=== PATIENT | male | born 1995 | race Caucasian/White ===

== ENCOUNTER 2019-01-25 16:53 | Outpatient (REF) | payer BC, SELFPAY ==
[2019-01-25 19:07] LABS: HCT 46.1 % (40.0-50.0); HGB 15.9 g/dL (13.5-17.5); Mean Corp. HGB Concentration 34.5 g/dL (32.0-36.0); Mean Corpuscular Hemoglobin 28.9 pg (27.0-33.0); Mean Corpuscular Volume 83.8 fL (80-95); Mean Platelet Volume 10.1 fL (8.0-11.0); Platelet Count 222 x1000/uL (130-400); RBC Distribution Width 11.9 % (11.8-14.1); White Blood Cell Count 6.43 k/cumm (4.4-10.8)
[2019-01-25 19:44] LABS: ALT 29 U/L (12-78); AST 16 U/L (15-37); Albumin 4.4 g/dL (3.4-5.0); Alkaline Phosphatase 94 U/L (46-116); Anion Gap 9.8 mmol/L (3-11); BUN 17 mg/dL (7-18); Bilirubin, Total 0.4 mg/dL (0.2-1.0); CO2 28.2 mmol/L (21.0-32.0); CREATININE 0.95 mg/dL (0.70-1.30); Calcium 9.3 mg/dL (8.5-10.1); Chloride 103 mmol/L (98-107); Glucose 87 mg/dL (70-100); Potassium 4.1 mmol/L (3.5-5.1); Sodium 141 mmol/L (136-145); TSH (W/Ref FT4) 2.21 uIU/mL (0.36-3.74); Total Protein 7.6 g/dL (6.4-8.2)
[2019-01-27 13:21] LABS: IgA 119 mg/dL (85-499); Interpretation SEE COMMENTS; Tissue Transglutaminase IgA <1.2 U/mL (<4.0)
== END 2019-01-25 17:13 ==
LOC: NCHCN 16:53
PROVIDERS: PCP Family Medicine; Visit Provider Family Medicine
DX: R53.83 Other fatigue (principal)
CPT/HCPCS: 80053; 82784; 83516; 85027; 84443

== ENCOUNTER 2019-08-16 11:53 | Outpatient (CLI) | payer BC, SELFPAY ==
[2019-08-17 11:42] LABS: Lyme Ab w Rflx to Lyme Confirm Negative (Negative)
== END 2019-08-16 12:13 ==
PROVIDERS: PCP Family Medicine; Visit Provider Nurse Practitioner Psychiatric/Mental Health
DX: R53.83 Other fatigue (principal)
CPT/HCPCS: 36415; 86618

== ENCOUNTER 2020-09-15 15:27 | Outpatient (REF) | payer BC, SELFPAY ==
[2020-09-15 18:00] LABS: ESR < 2 mm//hr (0-15)
[2020-09-15 18:19] LABS: C-Reactive Protein 0.07 mg/dL (0.0-0.3); Ferritin 101 ng/mL (26-388)
[2020-09-15 19:01] LABS: Folate 15.1 ng/mL (8.6-20.0); Vitamin B12 409 pg/mL (193-986)
[2020-09-18 09:58] LABS: HIV-1/2 Ag & Ab Screen Negative (Negative)
[2020-09-18 10:00] LABS: Lyme Ab w Rflx to Lyme Confirm Negative (Negative)
[2020-09-18 10:01] LABS: Hepatitis C Ab w Rflx HCV PCR Negative (Negative)
== END 2020-09-15 15:28 | disposition home or self-care (01) ==
LOC: NCHCN 15:27
PROVIDERS: PCP Family Medicine; Visit Provider Family Medicine
DX: F32.9 Major depressive disorder, single episode, unspecified (principal); R53.83 Other fatigue; Z00.00 Encounter for general adult medical examination without abnormal findings
CPT/HCPCS: 85652; 86803; 87389; 82607; 82728; 82746; 86140; 86618

== ENCOUNTER → 2021-11-24 14:35 | Outpatient (REF) | payer OTHER, SELFPAY ==
--- NOTE | 2021-11-24 15:00 | DI.RAD_ITS ---
Exam(s) XR KNEE RT 3V AP,LAT,OSMIN EXAM: XR KNEE RT 3V AP,LAT,OSMIN CLINICAL HISTORY: KNEE PAIN RIGHT. TECHNIQUE: 2D digital imaging was performed. Three views. COMPARISON: None FINDINGS: BONES: No acute fracture is present. No bony destructive lesion is seen. JOINTS: The knee is normally aligned. No joint effusion is seen. Joint spaces are well maintained SOFT TISSUE: Normal. IMPRESSION: Negative right knee DATA REPOSITORY: RADIATION DOSE DELIVERED:
--- NOTE | 2021-11-24 15:49 | DI.VRAD_ITS ---
PROCEDURE INFORMATION: Exam: XR Right Knee Exam date and time: 11/24/2021 2:54 PM Age: 26 years old Clinical indication: Pain; Knee; Right TECHNIQUE: Imaging protocol: Radiologic exam of the Right knee. Views: 1 lateral view. COMPARISON: No relevant prior studies available. FINDINGS: Limitations: Only a single lateral view was submitted for interpretation. Bones/joints: Unremarkable. Soft tissues: Unremarkable. IMPRESSION: On a single lateral view no evidence for acute bony injury. Consider obtaining at least two views for further evaluation. If clinical symptoms persist recommend followup film in 7-10 days. Dictated and Authenticated by: Yvonne Dao MD. Ordering:EVELIN Rodgers MD
--- NOTE | 2021-11-24 16:34 | DI.VRAD_ITS ---
Addendum created by Yvonne Dao MD on 11/24/2021 4:34:44 PM EDT: Distal by request for an addendum there is still only a single lateral view submitted for interpretation. Initial report created on 11/24/2021 3:49:29 PM EDT: PROCEDURE INFORMATION: Exam: XR Right Knee Exam date and time: 11/24/2021 2:54 PM Age: 26 years old Clinical indication: Pain; Knee; Right TECHNIQUE: Imaging protocol: Radiologic exam of the Right knee. Views: 1 lateral view. COMPARISON: No relevant prior studies available. FINDINGS: Limitations: Only a single lateral view was submitted for interpretation. Bones/joints: Unremarkable. Soft tissues: Unremarkable. IMPRESSION: On a single lateral view no evidence for acute bony injury. Consider obtaining at least two views for further evaluation. If clinical symptoms persist recommend followup film in 7-10 days. Dictated and Authenticated by: Yvonne Dao MD. Ordering:EVELIN Rodgers MD
--- NOTE | 2021-11-24 17:04 | DI.VRAD_ITS ---
Addendum created by Yvonne Dao MD on 11/24/2021 5:04:22 PM EDT: PROCEDURE INFORMATION: Exam: XR Right Knee Exam date and time: 11/24/2021 2:54 PM Clinical indication: Pain; Knee; Right TECHNIQUE: Imaging protocol: Radiologic exam of the Right knee. Views: 3 views. COMPARISON: No relevant prior studies available. FINDINGS: Bones/joints: Unremarkable. Soft tissues: Unremarkable. IMPRESSION: No evidence for acute bony injury. If clinical symptoms persist recommend followup film in 7-10 days. Addendum created by Yvonne Dao MD on 11/24/2021 4:34:44 PM EDT: Distal by request for an addendum there is still only a single lateral view submitted for interpretation. Initial report created on 11/24/2021 3:49:29 PM EDT: PROCEDURE INFORMATION: Exam: XR Right Knee Exam date and time: 11/24/2021 2:54 PM Age: 26 years old Clinical indication: Pain; Knee; Right TECHNIQUE: Imaging protocol: Radiologic exam of the Right knee. Views: 1 lateral view. COMPARISON: No relevant prior studies available. FINDINGS: Limitations: Only a single lateral view was submitted for interpretation. Bones/joints: Unremarkable. Soft tissues: Unremarkable. IMPRESSION: On a single lateral view no evidence for acute bony injury. Consider obtaining at least two views for further evaluation. If clinical symptoms persist recommend followup film in 7-10 days. Dictated and Authenticated by: Yvonne Dao MD. Ordering:EVELIN Rodgers MD
== END ==
LOC: DI 14:35
PROVIDERS: PCP Family Medicine; Visit Provider Physician Assistant Medical
DX: M25.561 Pain in right knee (principal)
CPT/HCPCS: 73562

== ENCOUNTER → 2021-12-31 02:11 | Outpatient (CLI) | payer OTHER, SELFPAY ==
--- NOTE | 2021-12-31 07:45 | DI.MRI_ITS ---
Exam(s) MR LOWER JOINT RT WO EXAM: MR LOWER JOINT RT WO CLINICAL HISTORY: R KNEE PAIN, INTERNAL DERANGEMENT RT KNEE, M23.91 TECHNIQUE: Multiplanar multisequence MRI of the knee was performed. COMPARISON: CR,XR XR KNEE RT 3V AP,LAT,OSMIN from 11/24/2021 FINDINGS: EFFUSION: Minimal amount of increased joint fluid. No large joint effusion. MARROW:No significant signal abnormality in the femoral condyles nor in the tibial plateau nor in the fibular head and neck. However, there is bone contusion signal in the patella, laterally more so than medially. There is a vertically orientated line in the lateral 3rd of the patella which is more visible on MRI than on rashida in films. May represent bipartite patella with surrounding edema or nondisplaced fracture in the lat eral 3rd of the patella. PATELLOFEMORAL COMPARTMENT: The quadriceps tendon is intact. The patellar ligament is intact. There is no significant thinning of the retropatellar cartilage. No evidence of fissure nor signific ant chondral defect. No osteochondral defect at this level.There is no intraosseous signal to sugges t recent patellar dislocation. There are no patellar retinacular tears. CRUCIATE LIGAMENTS: The anterior cruciate ligament is intact.The posterior cruciate ligament is intac t. MEDIAL COMPARTMENT/MEDIAL MENISCUS: There are no tears of the medial meniscus evident.. There are no chondral defects, osteochondral defects, subarticular marrow edema, nor osteophytes evid ent. MEDIAL COLLATERAL LIGAMENT: Intact LATERAL COMPARTMENT/LATERAL MENISCUS: There is no evidence of lateral meniscal tear.There are no topher dral defects, osteochondral defects, subarticular marrow edema, nor osteophytes evident. ILIOTIBIAL BAND: Intact LATERAL COLLATERAL LIGAMENT COMPLEX: The fibular collateral ligament is intact. The biceps femoris t endon is intact.Popliteus muscle and tendon are intact. IMPRESSION: 1. 2. 3. 4. DATA REPOSITORY:
== END ==
PROVIDERS: PCP Family Medicine; Visit Provider Student in an Organized Health Care Education/Training Program
DX: M25.561 Pain in right knee (principal); M23.8X1 Other internal derangements of right knee
CPT/HCPCS: 73721

== ENCOUNTER 2022-01-09 09:23 | Outpatient (CLI) | payer OTHER, SELFPAY ==
--- NOTE | 2022-01-09 09:00 | DI.RAD_ITS ---
Exam(s) XR KNEE RT 1V EXAM: XR KNEE RT 1V CLINICAL HISTORY: right knee f/u. TECHNIQUE: 2D digital imaging was performed. Merchant view the patella COMPARISON: CR,XR XR KNEE RT 3V AP,LAT,OSMIN from 11/24/2021 MR MR LOWER JOINT RT WO from 12/31/2021 FINDINGS: BONES: No acute fracture is present. No bony destructive lesion is seen. No abnormal bony lucency is visible. There is no visible bipartite patella. JOINTS: Patella is normally aligned. The patellofemoral joint space is well maintained. SOFT TISSUE: Normal. IMPRESSION: Bipartite patella versus fracture not visible on this single view. DATA REPOSITORY: RADIATION DOSE DELIVERED:
== END 2022-01-09 09:24 | disposition home or self-care (01) ==
LOC: DIORS 09:24
PROVIDERS: PCP Family Medicine; Referring Provider Family Medicine; Visit Provider Student in an Organized Health Care Education/Training Program
DX: M23.91 Unspecified internal derangement of right knee (principal)
CPT/HCPCS: 73560

== ENCOUNTER 2023-11-09 21:36 | Emergency (ER) | payer BC, SELFPAY ==
[2023-11-09 21:40] VITALS: BP 151/90; PULSE 85; RESP 18; TEMP 36.8; O2SAT 98
[2023-11-09 21:45] VITALS: BP 151/90; PULSE 85; RESP 18; TEMP 36.8; O2SAT 98
[2023-11-09] MEDS: Fluorescein STRIPS 100/BOX 1 MG (22:09)
[2023-11-09] MEDS: Erythromycin Ophth Oint 3.5 GM TUBE OD (22:33)
--- NOTE | 2023-11-10 20:46 | ED.GENADUL_ITS ---
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 HPI Narrative: 28-year-old male presents with left eye injury around 10 to 11 AM. States he was cutting metal without glasses. Denies any change in vision, states that he has had tearing and discomfort for the past several hours. Related Data Home Medications Medication Instructions Recorded Confirmed sumatriptan succinate 100 mg 100 mg PO ONCE #8 tab-caps 1817 11/09/23 tablet (Imitrex) Previous Rx's Medication Instructions Recorded sumatriptan succinate 100 mg 100 mg PO ONCE #8 tab-caps 05/26/17 tablet (Imitrex) Allergies Allergy/AdvReac Type Severity Reaction Status Date / Time Penicillins AdvReac Unknown ? as a Verified 11/09/23 22:09 child General Stated Complaint: EyeProblem HUMBLE: 4 Exam Narrative Exam Narrative: Alert and oriented young male, left eye injected, foreign body noted at 6 lack position overlying the iris, pupil equal round reactive to light and accommodation, fluorescein uptake after foreign body removal, negative [place] sign no periorbital trauma, lids everted without foreign body, extraocular muscles intact Course Vital Signs Vital signs: Vital Signs Temperature 36.8 C 11/09/23 21:40 Pulse 85 11/09/23 21:40 Respiratory Rate 18 11/09/23 21:40 Blood Pressure 151/90 H 11/09/23 21:40 Pulse Oximetry 98 11/09/23 21:40 Temperature 36.8 C 11/09/23 21:45 Temperature Source Skin 11/09/23 21:45 Pulse 85 11/09/23 21:45 Respiratory Rate 18 11/09/23 21:45 Respiratory Effort Normal 11/09/23 21:43 Blood Pressure 151/90 H 11/09/23 21:45 Blood Pressure Position Sitting 11/09/23 21:45 Pulse Oximetry 98 11/09/23 21:45 Oxygen Delivery Method Room Air 11/09/23 21:45 Oxygen Flow Rate 0 11/09/23 21:45 Pain Level 4 11/09/23 21:45 Procedures FB Removal Eye Time Out performed: Yes Location: eye (L) Topical anesthetic used: tetracaine Foreign body: metal Evidence of corneal penetration: No Technique: needle and electric mark Procedure performed under: direct visualization with magnification Post-procedure medication: ophthalmic antibiotic Patient tolerated procedure: well and no complications Medical Decision Making 28-year-old male presenting with foreign body in left eye, removed with syringe needle and rust ring removed with ophthalmic bur without incident Placed on erythromycin ointment, visual acuity 20/25 in bilateral eyes Encouraged to follow-up with [facility] with worsening symptoms Quality:SDOH Health Related Social Needs: No Data to Display PFSH All Active Problems (Updated 11/09/23 @ 22:28 by KEVIN Telles) Corneal rust ring (Acute) Eye foreign body (Acute) Contusion of right patella (Acute 11/23/21) Medical History Reactive airway disease Otitis media, recurrent Tibial fracture ADHD (attention deficit hyperactivity disorder) Mixed receptive-expressive language disorder OCD (obsessive compulsive disorder) Chronic fatigue Migraine Depression Acne Social History Smoking/Tobacco Use Status: Never Smoking risk assessment performed?: Yes Alcohol Intake: never Drug use: Never Current gender identity: male Do you feel safe in your relationship?: Yes
== END 2023-11-09 22:40 | disposition home or self-care (01) ==
PROVIDERS: Emergency Provider Physician Assistant; PCP Family Medicine
DX: H57.12 Ocular pain, left eye (principal); H18.892 Other specified disorders of cornea, left eye; T15.92XA Foreign body on external eye, part unspecified, left eye, initial encounter; W31.1XXA Contact with metalworking machines, initial encounter
CPT/HCPCS: 65220

== ENCOUNTER 2024-06-15 09:46 | Emergency (ER) | payer BC, SELFPAY ==
--- NOTE | 2024-06-15 09:45 | DI.RAD_ITS ---
Exam(s) XR CHEST 2V PA LATERAL EXAM: XR CHEST 2V PA LATERAL CLINICAL HISTORY: Chest pain TECHNIQUE: 2D digital imaging was performed of the chest. Two images were obtained. PA and lateral views were obtained. COMPARISON: CR SCOLIOSIS TL SPINE STANDING from 07/11/2009 FINDINGS: MEDIASTINUM: Normal. HEART: Normal. PULMONARY VASCULATURE: Normal. LUNGS: Clear. PLEURAL SPACE: No pleural effusion or pneumothorax. BONE:Within normal limits for the patient's age. OTHER FINDINGS:Normal. IMPRESSION: No acute pulmonary findings. DATA REPOSITORY: RADIATION DOSE DELIVERED:
--- NOTE | 2024-06-15 09:45 | RT.EKG_ITS ---
APPROVED REPORT Exam: Resting ECG Reason for Exam: Chest Pressure Patient Location: E HR:56 bpm ECG Measurements Heart Rate 56 AXIS TN 147 P 59 QRSd 115 QRS -90 QT 428 T 37 QTc 415 Conclusion Sinus bradycardia...rate< 60 No STEMI
[2024-06-15 09:51] VITALS: BP 141/87; PULSE 64; RESP 14; TEMP 36.4; O2SAT 99
[2024-06-15 10:08] LABS: Abs Immature Grans 0.03 10^3/uL (0.0-0.06); Absolute Basophil Count 0.04 10^3/uL (0.0-0.2); Absolute Eosinophil Count 0.29 10^3/uL (0.0-0.7); Absolute Lymphocyte Count 1.61 10^3/uL (1.2-3.4); Absolute Monocyte Count 0.72 10^3/uL (0.1-0.8); Absolute Neutrophil Count 6.28 10^3/uL (1.2-6.7); Basophils % 0.4 %; Eosinophils % 3.2 %; HCT 45.8 % (40.0-50.0); HGB 15.8 g/dL (13.5-17.5); Immature Grans % 0.3 %; Lymphocytes % 17.9 %; MCH 29.8 pg (27.0-33.0); MCHC 34.5 % (32.0-36.0); MCV 86 fL (80-95); Neutrophils % 70.2 %; Platelet Count 186 10^3/uL (130-400); RDW 11.4 % (11.8-14.1); RDW-SD 36.2 fL; WBC 8.97 10^3/uL (4.4-10.8)
[2024-06-15 10:10] VITALS: PULSE 54; RESP 20; O2SAT 98
--- NOTE | 2024-06-15 10:14 | ED.GENADUL_ITS ---
Discharge Plan Disposition Patient Disposition: Home Discharge Details Clinical Impression: Chest pain, unspecified Primary Care Provider: Manisha Chaidez ED Provider: Piotr Mukherjee Home Meds and New Rx's Prescriptions: Continued sumatriptan succinate [Imitrex] 100 MG tablet 100 mg PO ONCE Qty: 8 3RF Discharge Instructions Instructions: Chest Pain (DC) Additional Instructions: You are seen in the emergency department for your chest pain. Your EKG showed no sign of a heart attack. Please follow-up with your primary care provider later this month. If you pass out or develop chest pain that travels to your arm please return to the emergency department. Your x-ray showed no sign of pneumonia. Your blood work showed no sign of a heart attack. Discharge Data Discharge Date/Time-TO BE ENTERED AT DEPARTURE: 06/15/24 11:30 HPI General Date/Time Provider Initiated Documentation: 06/15/24 09:48 . HPI Narrative: MDM This is an overall very well-appearing afebrile and not tachycardic 29-year-old male with chest pain lacking risk factors for ACS for which patient well receive troponin testing based on his nonischemic ECG and his low heart score. If troponin testing is reassuring anticipate discharge with outpatient PCP follow- up. Given symptoms began last night if his initial troponin is undetectable we will discharge. I considered PE however the patient is PERC negative. Will obtain a chest x-ray to assess for pneumonia though patient has had no fevers nor cough. I considered pericarditis however patient's symptoms improved slightly when he lies down and has not recently had a cold nor cough and I did not hear friction murmurs my suspicion is low for pericarditis. Patient is not hypotensive nor tachycardic nor dialysis patient so my suspicion is low for tamponade. No trauma to chest to suggest increased risk for pneumothorax and equal breath sounds. No tearing quality to suggest aortic dissection. Patient has not been vomiting to suggest increased risk for esophageal rupture. 4:55 PM Late charting due to patient care. Patient had a reassuring delta troponin. We discussed that he should return to emergency department if he had recurrent symptoms or if he passed out. Chronic conditions affecting the care of the patient: N/A History obtained from an outside historian: N/A External record review: N/A [Diagnostic interpretations performed by me: Per my independent interpretation chest x-ray shows: Per my independent interpretation EKG shows: Sinus bradycardia at a rate of 56 with interventricular conduction delay. Normal axis. No ST segment abnormalities. No T wave versions. No acute injury pattern. ]Medications: N/A Social determinants of health affecting disposition: N/A Management discussed with: N/A Treatment/interventions considered: N/A Response to therapies provided: N/A HPI The patient presents for evaluation of chest pain. He reports experiencing a sensation of pressure in the mid-sternal region, which he first noticed approximately 2 years ago. Initially, these episodes were infrequent and brief, lasting only a few minutes, and he did not perceive them as significant. However, over the past few weeks, the frequency of these episodes has increased, with the most recent episode occurring last night. Despite the discomfort, he was able to sleep and woke up with residual light pressure this morning. He describes the sensation as a combination of squeezing and pushing, almaz to anxiety-induced chest pressure. He has no history of thromboembolic events in his legs or lungs. He maintains a healthy lifestyle, including regular exercise and a balanced diet. He is not a regular smoker but admits to occasional smoking. He also consumes alcohol sporadically but has abstained from both smoking and drinking since the onset of these symptoms. He reports no associated fever, cough, dyspnea, vomiting, abdominal pain, or nausea. He reports no recent trauma to the chest but speculates that his workout routine may have resulted in a muscle tear. The discomfort is exacerbated by deep inhalation and somewhat alleviated when lying on his chest. 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 He has had a few smokes in his life but is not a regular smoker. He has had some alcohol but is not a regular drinker. Exam General: Well-appearing in no acute distress speaking in complete sentences. Head: Normocephalic, atraumatic. Eye: Extraocular eye movements intact. No conjunctival injection. No scleral icterus. Ear, nose, mouth, throat: Grossly normal inspection. Normal voice, handling secretions normally. Neck: Trachea midline. Cardiovascular: Well-perfused distal extremities. Regular rate and rhythm Respiratory: Nonlabored respiration.Clear lungs bilaterally Gastrointestinal: Nondistended abdomen. Soft nontender. Musculoskeletal: No edema. Moving all 4 extremities spontaneously. Skin: Normal for age and race, grossly normal temperature and turgor. No acute rash. Neurologic: Alert and appropriate, no apparent acute deficits. Psychiatric: Mood and manner are appropriate. Grooming and personal hygiene are appropriate. Related Data Home Medications ?Medication ?Instructions ?Recorded ?Confirmed sumatriptan succinate 100 mg 100 mg PO ONCE #8 tab-caps 05/26/17 06/15/24 tablet (Imitrex) Previous Rx's ?Medication ?Instructions ?Recorded sumatriptan succinate 100 mg 100 mg PO ONCE #8 tab-caps 05/26/17 tablet (Imitrex) Allergies Allergy/AdvReac Type Severity Reaction Status Date / Time Penicillins AdvReac Unknown ? as a Verified 06/15/24 09:56 child General Stated Complaint: Chest Pain HUMBLE: 3 Course Vital Signs Vital signs: Vital Signs Temperature 36.4 C L 06/15/24 09:51 Pulse 64 06/15/24 09:51 Respiratory Rate 14 06/15/24 09:51 Blood Pressure 141/87 H 06/15/24 09:51 Pulse Oximetry 99 06/15/24 09:51 Temperature 36.4 C L 06/15/24 09:51 Temperature Source Temporal Artery Scan 06/15/24 09:51 Pulse 64 06/15/24 09:51 Respiratory Rate 14 06/15/24 09:51 Respiratory Effort Normal 06/15/24 10:08 Respiratory Depth Normal 06/15/24 10:08 Respiratory Pattern Normal 06/15/24 10:08 Blood Pressure 141/87 H 06/15/24 09:51 Blood Pressure Position Sitting 06/15/24 09:51 Pulse Oximetry 99 06/15/24 09:51 Oxygen Delivery Method Room Air 06/15/24 09:51 Oxygen Flow Rate 0 06/15/24 09:51 Pain Level 1 06/15/24 09:51 Lab/Test Results Lab/Test Results: Laboratory Tests Range/Units 06/15/24 10:00 WBC (4.4-10.8) 10^3/uL 8.97 RBC (4.36-5.78) 10^6/uL 5.30 Hgb (13.5-17.5) g/dL 15.8 Hct (40.0-50.0) % 45.8 MCV (80-95) fL 86 MCH (27.0-33.0) pg 29.8 MCHC (32.0-36.0) % 34.5 RDW (11.8-14.1) % 11.4 L Plt Count (130-400) 10^3/uL 186 MPV (8.0-11.0) fL 9.0 Immature Gran % % 0.3 Neutrophils % % 70.2 Lymphocytes % % 17.9 Monocytes % % 8.0 Eosinophils % % 3.2 Basophils % % 0.4 Nucleated RBC % (0.0-0.3) % 0.0 Absolute Neutrophils (1.2-6.7) 10^3/uL 6.28 Absolute Lymphocytes (1.2-3.4) 10^3/uL 1.61 Absolute Monocytes (0.1-0.8) 10^3/uL 0.72 Absolute Eosinophils (0.0-0.7) 10^3/uL 0.29 Absolute Basophils (0.0-0.2) 10^3/uL 0.04 Medical Decision Making Quality:SDOH Health Related Social Needs: No Data to Display PFSH All Active Problems (Updated 06/15/24 @ 10:25 by Piotr Mukherjee MD) Chest pain, unspecified (Acute) Contusion of right patella (Acute 11/23/21) Medical History Reactive airway disease Otitis media, recurrent Tibial fracture ADHD (attention deficit hyperactivity disorder) Mixed receptive-expressive language disorder OCD (obsessive compulsive disorder) Chronic fatigue Migraine Depression Acne Social History Smoking/Tobacco Use Status: Never Smoking risk assessment performed?: Yes Alcohol Intake: never Drug use: Never Current gender identity: male Do you feel safe in your relationship?: Yes POCUS Exam (ED) Limited Cardiac Exam DATE OF EXAM: 06/15/24 TIME OF EXAM: 10:15 PROVIDER THAT PERFORMED THE STUDY: Piotr Mukherjee IS THIS A REPEAT EXAM DURING THIS ENCOUNTER: no REASON FOR EXAM: Chest pain VISUALIZED STRUCTURES: Four Chambers, Left ventricle and LVOT VIEW OBTAINED: Apical 4-Chamber, Parasternal long-axis and Subxiphoid PERTINENT FINDINGS/IMPRESSION: No pericardial effusion and No RV dilation DIFFERENTIAL DIAGNOSES: Aortic outflow track less than 4 cm, good squeeze, RV less than LV, no significant pericardial effusion. Exam complete
[2024-06-15 10:32] LABS: Anion Gap 9.2 mmol/L (3-11); BUN 29 mg/dL (7-18); CO2 27.8 mmol/L (21.0-32.0); CREATININE 1.1 mg/dL (0.70-1.30); Calcium 9.2 mg/dL (8.5-10.1); Chloride 104 mmol/L (98-107); Estimated GFR 94.36 (mL/min/1.73m2); Glucose 91 mg/dL (74-106); Potassium 3.7 mmol/L (3.5-5.1); Sodium 141 mmol/L (136-145); Troponin I 4 ng/L (<or=76)
[2024-06-15 10:50] VITALS: BP 132/67
[2024-06-15 11:12] LABS: Troponin I 4 ng/L (<or=76)
[2024-06-15 11:29] VITALS: BP 118/62; PULSE 58; RESP 20; O2SAT 98
== END 2024-06-15 11:30 | disposition home or self-care (01) ==
PROVIDERS: Emergency Provider Emergency Medicine; PCP Family Medicine
DX: R07.9 Chest pain, unspecified (principal); R00.1 Bradycardia, unspecified
CPT/HCPCS: 36415; 80048; 93005; 93308; 99285; 71046; 84484; 85025; 93010; 99284

== ENCOUNTER 2024-07-09 12:58 | Outpatient (CLI) | payer BC, SELFPAY | END 2024-07-09 12:59 | disposition home or self-care (01) | LOC: CARDOPNVT 12:58 | PROVIDERS: PCP Family Medicine; Visit Provider Family Medicine | DX: R00.2 Palpitations (principal) | CPT/HCPCS: 93246 ==

== ENCOUNTER 2024-08-03 07:42 | Outpatient (CLI) | payer BC, SELFPAY ==
--- NOTE | 2024-08-03 09:31 | W.CARDEVENT ---
Date of service: 08/03/24 Time of Service: 09:32 Cardiac Event Recorder Referring Provider:: Manisha Chaidez Indications:: Palpitations Cardiac Event Note: This is a cardiac event monitor. Patient was monitored for 10 days and 2 hours Rhythm throughout was sinus with an average heart rate of 61. Minimum was 31, maximum 170 A total of 4 isolated premature ventricular contractions occurred There were no additional reported dysrhythmias. Symptoms were reported which corresponded to sinus rhythm at 65, sinus rhythm at 93
== END 2024-08-03 07:43 | disposition home or self-care (01) ==
LOC: CARDOPNVT 07:42
PROVIDERS: PCP Family Medicine; Visit Provider Internal Medicine Cardiovascular Disease
DX: R00.2 Palpitations (principal)

== ENCOUNTER 2025-05-13 17:07 | Outpatient (REF) | payer BC, SELFPAY ==
[2025-05-13 19:21] LABS: HCT 47.1 % (40.0-50.0); HGB 16.5 g/dL (13.5-17.5); MCH 29.5 pg (27.0-33.0); MCHC 35.0 % (32.0-36.0); MCV 84 fL (80-95); MPV 9.7 fL (8.0-11.0); Platelet Count 224 10^3/uL (130-400); RBC 5.59 10^6/uL (4.36-5.78); RDW 11.4 % (11.8-14.1); RDW-SD 34.9 fL; WBC 8.20 10^3/uL (4.4-10.8)
[2025-05-13 19:34] LABS: TSH (W/Ref FT4) 1.98 uIU/mL (0.55-4.78)
== END 2025-05-13 17:08 | disposition home or self-care (01) ==
LOC: NCHCN 17:07
PROVIDERS: PCP Family Medicine; Visit Provider Family Medicine
DX: R06.09 Other forms of dyspnea (principal)
CPT/HCPCS: 85027; 84443

== ENCOUNTER → 2025-05-27 00:17 | Outpatient (CLI) | payer BC, SELFPAY ==
--- NOTE | 2025-05-27 | DI.US_ITS ---
APPROVED REPORT EXAM: Comprehensive 2D, Doppler, and color-flow Echocardiogram Patient Location: Out-Patient R D Intern: Gardenia Dallas RDCS (AE) Indications: Dyspnea on exertion Other Information Study Quality: Good Conclusion Normal left ventricular wall thickness and chamber size. Ejection fraction is 65%. Wall motion is normal Normal right ventricular size and function Both atria are normal in size There is no structural or hemodynamically significant valvular disease Estimated right ventricular systolic pressure is 18 mmHg Wall motion Left Ventricle The left ventricle is normal size. The left ventricular systolic function is normal. The left ventricular ejection fraction is within the normal range. There is normal left ventricular wall thickness. There is normal LV segmental wall motion. There is no ventricular septal defect visualized. LVEF is 65%. Right Ventricle The right ventricle is normal size. The right ventricular systolic function is normal. Atria The left atrium size is normal. The right atrium size is normal. The interatrial septum is intact with no evidence for an atrial septal defect. Aortic Valve The aortic valve is normal in structure. Aortic valve is trileaflet. There is no aortic valvular stenosis. No aortic regurgitation is present. Mitral Valve The mitral valve is normal in structure. No evidence of mitral valve stenosis. Trace mitral regurgitation. Tricuspid Valve The tricuspid valve is normal in structure. There is no tricuspid valve stenosis. Trace tricuspid regurgitation. The RVSP is 18.1 mmHg. Pulmonic Valve The pulmonary valve is normal in structure. There is no pulmonic valvular stenosis. There is no pulmonic valvular regurgitation. Great Vessels The aortic root is normal in size. The ascending aorta is normal in size. Aortic arch is normal in caliber. IVC is normal in size and collapses >50% with inspiration. Pericardium There is no pericardial effusion. 2D Dimensions IVSD d PLAX 0.90 cm M: 0.6-1.2 Ao Root d 2.73 cm M: 3.1 - 3.7 LVPW d PLAX 0.90 cm M: 0.6 - 1.2 Ao Asc Diam d 3.11 cm M: 2.6 - 3.4 LVID d PLAX 4.60 cm M: 4.2 - 5.8 LVDs 2.94 cm M: 2.5 - 4.0 LV EF Teichholz 65.2 % FS 35.63 % LV EDV (Teich) 96.0 mL LV ESV (Teich) 33.4 mL M-Mode TAPSE 2.17 cm (M/F) >1.7 Auto EF LV EDV A4C 118.0 mL LV EDV A2C 168.9 mL LV EDV BP 141.0 mL LV ESV A4C 41.7 mL LV ESV A2C 59.6 mL LV ESV BP 50.4 mL LVEF(%) A4C 64.6 % LVEF(%) A2C 64.7 % LVEF(%) BP 64.3 % LV SV A4C 76.3 ml LV SV A2C 109.3 ml LV SV BP 90.6 ml LV CO A4C 3.8 L/min LV CO A2C 5.2 L/min LV CO BP 4.5 L/min HR A4C 50.07 BPM HR A2C 47.94 BPM LV EDV Index (BP) LA Volume LA Length A4C 4.1 cm LA Length A2C 4.8 cm LA Area A4C s 13.60 cm2 LA Area A2C s 17.67 cm2 LA Vol A4C A-L 38.07 mL LA Vol A2C A-L 55.49 mL LA Vol Biplane A-L 49.5 mL LA Vol/BSA A4C A-L LA Vol/BSA A2C A-L LA Vol/BSA BP A-L 25.9 mL/m2 LA Vol A4C MOD 36.1 mL LA Vol A2C MOD 51.4 mL LA Vol BP MOD 46.3 mL RA Volume RA Area A4C 11.5 cm2 RA ESV A4C (A-L) 28.8mL RA Vol/BSA A4C A-L RA Length A4C 3.9 cm RA ESV A4C (MOD) 27.9mL LV Diastology MV E' medial 0.129 (>0.07 m/s) MV E Vmax 0.96 (0.4-1.3 m/s) MV E/E' MED 7.50 (<14) MV A Vmax 0.65 (0.4-1.3 m/s) MV E' lateral 0.149 (>0.1 m/s) E/A Ratio 1.5 MV E/E' LAT 6.45 (<14) MV E' Average 0.139 m/s MV E/E'(average) 6.94 Aortic Valve AoV Vmax 1.22 m/s LVOT Vmax 1.17 m/s AoV Peak Grad 5.9 mmHg LVOT Peak Grad 5.5 mmHg AoV Area (Vmax) 2.69 cm2 LVOT VTI 0.255 m AoV VTI 0.240 m LVOT Mean Grad 3.0 mmHg AoV Mean Doug. 0.85 m/s LVOT SV 71.04 mL AoV Mean Grad 3.3 mmHg LVOT Diam s 1.85 cm AoV Area (VTI) 2.96 cm2 AV Regurg Peak Gr. 5.91 mmHg Velocity Ratio 0.96 Mitral Valve MV DT 160 (160-240 msec) Pulmonary Valve PV Vmax 1.12 (0.5-1.5 m/s) RVOT Vmax 0.85 m/s PV Peak Grad 5.1 mmHg RVOT Peak Gr. 2.9 mmHg PV Mean Doug 0.77 m/s RVOT VTI 0.182 m PV Mean Grad 2.7 mmHg RVOT Mean Gr. 1.7 mmHg Tricuspid Valve RA Pressure 3.00 mmHg TR Vmax 1.94 m/s TV S' 0.15 m/s TR Peak Grad 15.0 mmHg RVSP (TR) 18.1 mmHg
== END ==
PROVIDERS: PCP Family Medicine; Visit Provider Family Medicine
DX: R06.09 Other forms of dyspnea (principal)
CPT/HCPCS: 93306